=== PATIENT | female | born 2000 | race Caucasian/White ===

== ENCOUNTER 2024-07-30 00:18 | Day surgery (SDC) | payer BC ==
[2024-07-30 00:37] VITALS: BMI 26.2
[2024-07-30] MEDS ORDERED: hydrALAZINE 20 MG/ML VIAL SLOW IVP PRN (00:49)
[2024-07-30] MEDS ORDERED: Acetaminophen 500 MG TAB PO SCH (01:15)
[2024-07-30 01:58] LABS: Influenza A by NAA Not Detected (NotDetected); Influenza B by NAA Not Detected (NotDetected); RSV by NAA Not Detected (NotDetected); SARS-CoV-2 NAA Rapid Test Not Detected (NotDetected)
== END 2024-07-30 02:05 | disposition home or self-care (01) ==
LOC: CSHLD/OP 00:18
PROVIDERS: ATTEND Obstetrics & Gynecology
DX: O36.8130 Decreased fetal movements, third trimester, not applicable or unspecified (principal); O99.013 Anemia complicating pregnancy, third trimester; Z3A.29 29 weeks gestation of pregnancy; Z79.899 Other long term (current) drug therapy; Z20.822 Contact with and (suspected) exposure to COVID-19
CPT/HCPCS: 0241U; 76819